=== PATIENT | male | born 1975 | race Two or more races ===

== ENCOUNTER 2020-03-31 12:52 | Outpatient (REF) | payer MEDICAID, SELFPAY | END 2020-03-31 12:53 | disposition home or self-care (01) | LOC: HO.LAB 12:52 | PROVIDERS: Visit Provider Internal Medicine | DX: Z20.828 Contact with and (suspected) exposure to other viral communicable diseases (principal) | CPT/HCPCS: 87635 ==

== ENCOUNTER 2021-01-09 13:22 | Emergency (ER) | payer MEDICAID, SELFPAY ==
--- NOTE | ~2021-01-09 | XR_ITS ---
EXAMINATION: XR FINGER, RIGHT CLINICAL INFORMATION: Pain and swelling right third finger. COMPARISON: None TECHNIQUE: AP view right hand is performed along with oblique and lateral views of the right third finger. FINDINGS: There is focal soft tissue swelling distal dorsal and lateral aspect distal right third finger near nail bed. There is no visible soft tissue radiopaque foreign body or gas tracking in the soft tissues. The underlying bone appears intact. There is no periostitis or destructive process. No fracture or dislocation. No joint narrowing or erosive changes. The remainder of the bony structures are unremarkable. XR/XR finger RT min 2V IMPRESSION: Soft tissue swelling distal right third finger. No gas tracking in soft tissues. No bony destructive process.
[2021-01-09 13:51] VITALS: BP 187/91; PULSE 56; RESP 20; TEMP 35.4; O2SAT 98; BMI 27.3
[2021-01-09] MEDS: Ibuprofen 600 MG TABLET PO (13:57)
[2021-01-09 15:32] VITALS: RESP 16
[2021-01-09] MEDS: Lidocaine HCl 1 % MPF 5 ML VIAL SUBCUT ×2 (15:57)
--- NOTE | 2021-01-09 16:28 | ED.EXTPRO ---
HPI - Extremity Problem General Chief complaint: Extremity Problem Stated complaint: rt hand finger pain Time Seen by Provider: 01/09/21 15:46 History of Present Illness HPI Narrative: Patient complains of right middle finger pain with redness and swelling around the nail bed, no other pain or swelling no fever no numbness weakness or tingling Related Data Previous Rx's Medication Instructions Recorded ibuprofen 600 mg tablet 600 mg PO Q6H PRN #20 tab 01/09/21 oxycodone-acetaminophen 5 mg-325 1 tab PO Q4-6H PRN #10 tab 01/09/21 mg tablet (Percocet) sulfamethoxazole 800 1 tab PO Q12H #14 tab 01/09/21 mg-trimethoprim 160 mg tablet (Bactrim DS) Allergies Allergy/AdvReac Type Severity Reaction Status Date / Time No Known Allergies Allergy Unknown NONE Unverified 02/28/20 18:37 Review of Systems Review of Systems: Positive for right middle finger redness and pain around the nail bed Negatives are no fever no chills no numbness weakness or tingling no joint pains no other skin rashes Yes all other systems are reviewed and are negative PMFSH Past Medical History Source: nursing notes reviewed Social History Social History Alcohol intake: never Patient Tobacco Use Status: Never used Tobacco Use of substances other than those prescribed or required for medical reasons: No Advance Directives: No Advance Directives Information Provided: No Physical Exam Vital Signs: Vital Signs: Last Vital Signs Temp 95.7 F L 01/09/21 13:51 Pulse 53 01/09/21 16:50 Resp 16 01/09/21 15:32 BP 166/100 H 01/09/21 16:50 Pulse Ox 99 01/09/21 16:50 Body Mass Index 27.3 General appearance is no acute distress Head is normocephalic atraumatic Neck is supple Respiratory no distress Extremities full range of motion x4 Right middle finger add paronychia on the lateral side of the nail bed, there is no other redness or swelling, there is full range of motion in the joints there is no tenderness over the tendons, there is no felon, there is no lymphangitis, neurovascular intact distal Course Course Course Narrative: Right middle ferritin her paronychia is cleansed with Betadine Digital block with 6 cc of 1% lidocaine is performed The nailbed is lifted with a scalpel and probed with forceps with discharge of pus and a small bit of packing is placed in the paronychia and a dressing was placed Patient was informed of his elevated blood pressure and informed of risks of failure to treat or control his blood pressure and is vice to follow with the primary doctor At this time there is no chest pain no stroke symptoms no evidence of any emergency related to this hypertension Discharge Plan Discharge Clinical Impression: Paronychia, Elevated blood pressure reading Patient Disposition: Home, Self-Care Additional Instructions: Return to ER in 2 days for packing removal wound check If the infection is improving it is okay to pull out the packing herself and then do warm soaks in Epsom salts to dried all the pus If it turns worse in any way, spreading redness, worse pain and swelling, fever, red stripe up your arm any worse condition or concerns return immediately to the ER Your blood pressure was high in the emergency room so you may have high blood pressure The best plan is to get a home blood pressure cuff and keep a journal of the readings every day to see if it is really high Follow with a primary care doctor to be evaluated for high blood pressure Prescriptions: New sulfamethoxazole-trimethoprim [Bactrim DS] 800-160 mg tablet 1 tab PO Q12H Qty: 14 RF: 0 ibuprofen 600 mg tablet 600 mg PO Q6H PRN (Reason: pain) Qty: 20 RF: 0 oxycodone-acetaminophen [Percocet] 5-325 mg tablet 1 tab PO Q4-6H PRN (Reason: pain) Qty: 10 RF: 0 Stand Alone Forms: Work/School Release Interventions: ED Discharge Assessment Last Done: 01/09/21 17:14 Discharge Date/Time: 01/09/21 17:16
[2021-01-09 16:50] VITALS: BP 166/100; PULSE 53; O2SAT 99
== END 2021-01-09 17:16 | disposition home or self-care (01) ==
PROVIDERS: Emergency Provider Emergency Medicine
DX: L03.011 Cellulitis of right finger (principal); M79.644 Pain in right finger(s)
CPT/HCPCS: 10060; 73140; 99284

== ENCOUNTER 2021-06-29 08:21 | Outpatient (REF) | payer MEDICAID, SELFPAY ==
[2021-06-29 09:30] LABS: COVID-19 Test Positive (Negative)
== END 2021-06-29 08:22 | disposition home or self-care (01) ==
LOC: HO.LAB 08:21
PROVIDERS: Visit Provider Internal Medicine
DX: Z20.822 Contact with and (suspected) exposure to COVID-19 (principal)
CPT/HCPCS: 87635; C9803

== ENCOUNTER 2023-10-25 12:50 | Outpatient (AMB) | payer MEDICAID, SELFPAY ==
--- NOTE | 2023-10-25 12:57 | MHC.OFFVIS ---
Vital Signs 10/25/23 13:00 Height 5 ft 8 in Weight 188 lb BMI 28.6 BP 133/78 Blood Pressure Location Rt brachial Position Sitting Pulse 72 Intake Visit Reasons: rt side inguinal hernia Intake Note: Patient referred for Rt inguinal hernia. Present for 1yr. Patient c/o: recently started to become painful. Denies nausea, diarrhea, constipation. Heel Sander Rubber Required: Yes Heel Sander Rubber Name: Marii JOHNSTON Accompanied by: Self / Same As Patient Allergies No Known Allergies Allergy (Unknown, Unverified 10/25/23 12:58) NONE HPI Comments Details: Patient presents with a proximally 1 year history of symptomatic right inguinal hernia. It is increasing in size, become more symptomatic. He would like to have repaired. Patient does significant weightlifting in exercising and thinks that this may have had something to do with the development of the hernia. Otherwise he tolerates a regular diet, and has regular bowel habits. No other GI issues or complaints. Chart was reviewed and patient evaluated FORMERLY [facility], [facility]–1983 Medical History (Updated 10/25/23 @ 12:59 by PRESTON Haley) Anxiety Social History Alcohol intake: never Patient Tobacco Use Status: Never used Tobacco Physical Exam Vital Signs: Last Vital Signs Pulse 72 10/25/23 13:00 BP 133/78 10/25/23 13:00 BMI result Body Mass Index 28.6 Chest Other: Chest breath sounds bilaterally, HS 1 in 2 GI Other: Patient was examined both supine and standing with Valsalva. Abdomen is soft, mildly corpulent, benign. Left groin negative. Genitalia within normal limits. Very large reducible right inguinal hernia. Assessment & Plan Assessment & Plan (1) Right inguinal hernia: Code(s): K40.90 - Unilateral inguinal hernia, without obstruction or gangrene, not specified as recurrent Category: Surgical Plan Risks, benefits, alternatives of open repair of right inguinal hernia with mesh were reviewed with the patient and included but not limited to bleeding, infection, recurrence, numbness, pain, scarring the patient wishes to proceed. All questions answered. Arrangements were made for this. Medications: Discontinued sulfamethoxazole-trimethoprim 800-160 mg (Bactrim DS) Discontinued Reason: Patient Completed Course 1 tab PO Q12H 14 tabs 0RF oxycodone-acetaminophen 5-325 mg (Percocet) Narcotic, no driving for 6 hours after taking this medication Discontinued Reason: Patient no longer taking 1 tab PO Q4-6H PRN 10 tabs 0RF pain Coding Level of Care Code New Pt Level 5 (13233) Diagnoses Right inguinal hernia K40.90
[2023-10-25 13:00] VITALS: BP 133/78; PULSE 72; BMI 28.6
== END 2023-10-25 13:09 | disposition home or self-care (01) ==
PROVIDERS: PCP Internal Medicine; Referring Provider Internal Medicine; Visit Provider Surgery
DX: K40.90 Unilateral inguinal hernia, without obstruction or gangrene, not specified as recurrent (principal)
CPT/HCPCS: 99204

== ENCOUNTER → 2023-10-25 12:50 | Outpatient (BNVA) | payer MEDICAID, SELFPAY | PROVIDERS: PCP Internal Medicine; Visit Provider Surgery | DX: K40.90 Unilateral inguinal hernia, without obstruction or gangrene, not specified as recurrent (principal) | CPT/HCPCS: 99202 ==

== ENCOUNTER 2023-11-24 07:50 | Day surgery (SDC) | payer MEDICAID, SELFPAY ==
[2023-11-22 07:06] VITALS: BMI 28.6
--- NOTE | 2023-11-22 15:20 | HO.ANESPROP2 ---
Documented by User: Shaunna Still NP 11/22/23 15:20 HPI - Anesthesia Eval Consult details Narrative: 48yo M for Right OPEN Hernia Inguinal Reducible with mesh PMFSH Active Problems Active Problems: All Active Problems Right inguinal hernia (Acute) Past Medical History Medical History Anxiety Surgical History Surgical History (Updated 11/24/23 @ 08:17 by Kelin Soto RN) History of esophagogastroduodenoscopy (EGD) Social History Social History Alcohol intake: never Patient Tobacco Use Status: Current someday Tobacco user Tobacco use type: Cigarette Smoked in Last 30 Days: Yes Patient Interested in Nicotine Replacement: No Substance Use Frequency: Daily Are you DNR?: No Advance Directives: No Advance Directives Information Provided: Yes Nutrition Risks: No Nutritional Risk Meds Allergies Allergy/AdvReac Type Severity Reaction Status Date / Time No Known Allergies Allergy Unknown NONE Verified 11/24/23 08:17 Exam Height,Weight and Vital Signs: Height 5 ft 8 in Weight 85.275 kg Assessment and Plan Assessment Anesthesia Assessment: Chart Reviewed Documented by User: Raj Chandler MD 11/24/23 09:50 PMF Past Medical History Medical History Anxiety Surgical History Surgical History (Updated 11/24/23 @ 08:17 by Kelin Soto RN) History of esophagogastroduodenoscopy (EGD) History of Problems with Anesthesia: No Social History Social History Alcohol intake: never Patient Tobacco Use Status: Current someday Tobacco user Tobacco use type: Cigarette Smoked in Last 30 Days: Yes Patient Interested in Nicotine Replacement: No Substance Use Frequency: Daily Are you DNR?: No Advance Directives: No Advance Directives Information Provided: Yes Nutrition Risks: No Nutritional Risk Meds Allergies Allergy/AdvReac Type Severity Reaction Status Date / Time No Known Allergies Allergy Unknown NONE Verified 11/24/23 08:17 Exam Airway Mallampati Class: II TM Dist: >3cm Neck ROM: Full Loose/Missing/Broken Teeth: No Heart: rrr Lungs: cta Assessment and Plan Assessment Anesthesia Assessment: Anesthesia Plan Discussed and Smoking Cess. Discussed Final Anesthetic Review History of Problems with Anesthesia: No NPO: Yes ASA Class: II Final Preanesthetic Review: No Changes in Pt Med Stat, Meds/Allgs Chart Reviewed, Consent Obtained/Reviewed and Anes Risks/Benef Reviewed Patient Risk: Intermediate Procedure Risk: Low Anesthetic Plan Anesthetic Plan: GA Disposition: Standard PACU
--- NOTE | 2023-11-23 08:07 | MHC.SHP ---
Pre-Procedural Eval Section A - 24 Hr Update-Section A only Date of Service: 11/24/23 The patient is an INPATIENT: No Changes since office visit: No Cold of Flu in the past 2 weeks, No New Medical Problems, No Changes in Medication and No Patient answered all questions Section B - Complete if H&P > 30 days Chief Complaint: Unilateral inguinal hernia, without obstruction Allergies: Allergies Allergy/AdvReac Type Severity Reaction Status Date / Time No Known Allergies Allergy Unknown NONE Unverified 10/25/23 12:58 Plan I have reviewed the history and physical and performed a pertinent physical examination on my patient. No changes have occurred unless specified. Time Spent With Patient Time: Total time managing care of this patient today ____ minutes.
[2023-11-24] VITALS (7 sets, daily range): BP systolic 113–158; BP diastolic 56–90; PULSE 49–68; RESP 16–18; TEMP 36.1–36.6; O2SAT 98–100
[2023-11-24] MEDS: Lactated Ringers 1,000 ML 100 ML IVCONT (08:10)
--- NOTE | 2023-11-24 08:33 | PC.NURSE ---
dr. bauman aware that patient had tooth pulled on Tuesday and only took one dose of the antibiotic due to surgery did not know that he could keep taking it. per dr. bauman okay to proceed. educated patient.
--- NOTE | 2023-11-24 10:52 | W.PM.OPN ---
Operative Note Operative Note Date of Service: 11/24/23 Narrative: Preoperative diagnosis: [] Symptomatic right inguinal hernia Postop diagnosis: [] The same Procedure [] right open inguinal herniorrhaphy with Bard mesh Surgeon: [] Miles Property Assessment Monitor: [] Eri Type of Anesthesia: [] General Indication for surgery: [] Very large indirect right inguinal hernia. No direct hernia demonstrated. Findings: [] Patient brought to the operating room, placed on operative table supine position, after adequate level of general anesthesia was induced, the patient's right groin groin was prepped and draped in usual sterile fashion. Using a small right para inguinal incision, this carried down through skin, subcutaneous tissue, Raffaele's fascia. External oblique fibers were opened their direction with care to isolate and preserve the ilioinguinal nerve throughout the procedure. Exploration of the cord demonstrated no indirect hernia. A very large indirect hernia was identified and reduced. A Bard plug was placed in this direct defect, and sutured inferiorly to the inguinal ligament, and superiorly to the transversalis fascia using interrupted 0 Ethibond suture. At completion of the procedure, mesh was in good position, covered the entire inguinal floor with no gaps or tension. Wound was irrigated, secured hemostasis, and closed in the following manner; external oblique fascia was closed using running 2-0 Vicryl suture. Raffaele's fascia was reapproximated using interrupted 3-0 Vicryl suture. Interrupted inverted deep dermal 3-0 Vicryl sutures followed by running subcuticular 4-0 Vicryl sutures were placed. Steri-Strips sterile dressings were applied. Wound was infiltrated at the beginning at the end with 0.5% Marcaine. Ipsilateral testicle was intrascrotal at completion. Sponge, needle, and instrument counts were reported correct. Patient tolerated the procedure well and emerged from anesthesia stable condition. EBL minimal
== END 2023-11-24 11:49 | disposition home or self-care (01) ==
PROVIDERS: Visit Provider Surgery
PROC: (CPT 49505; principal; 2023-11-24 10:10)
DX: K40.90 Unilateral inguinal hernia, without obstruction or gangrene, not specified as recurrent (principal)
CPT/HCPCS: 49505; C1781; J0131; J0690; J2250; J2704; J2795; J3010

== ENCOUNTER → 2023-11-24 07:50 | Outpatient (BNV) | payer MEDICAID, SELFPAY | PROVIDERS: Visit Provider Surgery | DX: K40.90 Unilateral inguinal hernia, without obstruction or gangrene, not specified as recurrent (principal) | CPT/HCPCS: 49505 ==

== ENCOUNTER 2023-12-05 10:42 | Outpatient (AMB) | payer MEDICAID, SELFPAY ==
--- NOTE | 2023-12-05 10:50 | MHC.OFFVIS ---
Intake Visit Reasons: S/P RIH w/mesh Intake Note: Patient here s/p RIH w/mesh. Reports incisions healing well. Patient c/o: denies pain, oozing. No longer taking rx pain meds. SX: 11-24-2023. Can Filling Room Sweeper Required: No Accompanied by: Self / Same As Patient Allergies No Known Allergies Allergy (Unknown, Verified 12/05/23 10:50) NONE HPI Comments Details: Patient presents for follow-up. He has minimal incisional discomfort. He has tolerating a diet. Having regular bowel habits. He has no wound issues or complaints. He is increasing his activity level. [facility] Medical History Anxiety Surgical History (Updated 12/05/23 @ 11:05 by Kristopher Aquino MD) Right inguinal hernia (11/24/23) History of esophagogastroduodenoscopy (EGD) Social History Alcohol intake: never Patient Tobacco Use Status: Current someday Tobacco user Tobacco use type: Cigarette Physical Exam GI Other: Abdomen is soft incision clean dry intact healing very well Assessment & Plan Assessment & Plan (1) Postop check: Code(s): Z09 - Encounter for follow-up examination after completed treatment for conditions other than malignant neoplasm Category: Surgical Plan Patient has been given local instructions, and will otherwise follow-up p.r.n.. All questions answered. He will start work which is not very strenuous but should it be come difficult, he has been instructed to call the office for unknown for time off/light duty note Coding Level of Care Code Global (95164) Diagnoses Postop check Z09
== END 2023-12-05 11:15 | disposition home or self-care (01) ==
PROVIDERS: PCP Internal Medicine; Visit Provider Surgery
DX: Z09 Encounter for follow-up examination after completed treatment for conditions other than malignant neoplasm (principal)
CPT/HCPCS: 99024

== ENCOUNTER → 2023-12-05 10:42 | Outpatient (BNVA) | payer MEDICAID, SELFPAY | PROVIDERS: PCP Internal Medicine; Visit Provider Surgery | DX: Z09 Encounter for follow-up examination after completed treatment for conditions other than malignant neoplasm (principal); Z87.19 Personal history of other diseases of the digestive system | CPT/HCPCS: 99212 ==

== ENCOUNTER 2024-01-19 15:57 | Emergency (ER) | payer MEDICAID, SELFPAY ==
--- NOTE | ~2024-01-19 | XR_ITS ---
EXAMINATION: XR CHEST CLINICAL INFORMATION: Chest pain COMPARISON: Chest radiograph 12/29/2019 TECHNIQUE: 2 views of the chest were obtained. FINDINGS: The lungs are adequately expanded. No focal consolidation. No pleural effusions or pneumothorax. The cardiomediastinal silhouette is within normal limits. No acute osseous abnormality. Mild degenerative changes of the thoracic spine. XR/XR chest 2V IMPRESSION: No acute pulmonary disease.
--- NOTE | 2024-01-19 16:05 | ECG_ITS ---
Test Reason : chest pain Blood Pressure : / mmHG Vent. Rate : 056 BPM Atrial Rate : 056 BPM P-R Int : 130 ms QRS Dur : 078 ms QT Int : 412 ms P-R-T Axes : 067 039 046 degrees QTc Int : 397 ms Sinus bradycardia Otherwise normal ECG When compared with ECG of 30-DEC-2019 02:56, Vent. rate has decreased BY 89 BPM Nonspecific T wave abnormality no longer evident in Inferior leads Nonspecific T wave abnormality no longer evident in Anterolateral leads Referred By: Generic ED Physician Electronically Signed By:NICOLLE REAVES MD
--- NOTE | 2024-01-19 16:06 | ED_ITS ---
HPI - General Adult General Chief complaint: Chest Pain Stated complaint: l side chest pain x3 days,rectal bleeding x5days Time Seen by Provider: 01/19/24 16:06 Source: patient Mode of arrival: ambulatory Limitations: no limitations History of Present Illness ED Provider: suhail [facility] narrative: Patient is a 48-year-old male with no reported past medical history presenting to the emergency department with complaint of bright red rectal bleeding for the past 5 days as well as intermittent epigastric pain, but states today he developed left sided chest pain which brought him in. States chest pain has been intermittent, some associated shortness of breath. Denies palpitations. Denies current abdominal pain. Denies nausea, vomiting, diarrhea, constipation. States he has noted blood in the toilet and on the toilet paper when he wipes with all BMs for the past 4-5 days. Mild lightheadedness, denies syncope. MD complaint: chest pain, rectal bleeding Treatments prior to arrival: none Related Data Previous Rx's ?Medication ?Instructions ?Recorded ibuprofen 600 mg tablet 600 mg PO Q6H PRN pain #20 tabs 01/09/21 Allergies Allergy/AdvReac Type Severity Reaction Status Date / Time No Known Allergies Allergy Unknown NONE Verified 01/19/24 16:11 Review of Systems 2 Review of Systems: As per HPI Yes all other systems are reviewed and are negative Constitutional: Constitutional: Reports as per HPI [facility] Past Medical History Medical History (Updated 01/19/24 @ 20:37 by Chika Herzog NP) Anxiety Surgical History (Updated 12/05/23 @ 11:05 by Kristopher Aquino MD) Right inguinal hernia (11/24/23) History of esophagogastroduodenoscopy (EGD) Social History Social History Alcohol intake: never Patient Tobacco Use Status: Current someday Tobacco user Tobacco use type: Cigarette Advance Directives: No Advance Directives Information Provided: No Do you have a plan to hurt others: No Plan Physical Exam ED Vital Signs: Vital Signs - 24 hr 01/19/24 16:07 01/19/24 19:13 Temperature 98.5 F 98.1 F Pulse Rate 60 55 Respiratory Rate 20 14 Blood Pressure 129/69 114/74 Pulse Oximetry 98 97 Oxygen Delivery Method Room Air Room Air BMI result Body Mass Index 30.3 Vital signs have been reviewed and appear to be correct. Blood pressure normal. Heart rate normal. Respiratory rate normal. Temperature normal. Oxygen saturation normal. Const General: cooperative, healthy appearing and no acute distress Orientation/consciousness: oriented to person, oriented to place, oriented to time and patient oriented x3 Limitations: no limitations HENMT Head: Yes normocephalic and Yes atraumatic Ears: external ears normal General nose exam: Normal external nose present Face and sinus: Yes face symmetric Mouth: oropharynx normal and moist mucous membranes Throat: Yes uvula midline Eyes Pupils: Equal, round and reactive pupils present Neck Neck: Yes normal visual inspection and Yes supple Resp Effort & Inspection: normal respiratory effort and able to speak in complete sentences Auscultation: clear to auscultation bilaterally Cardio Rate: regular rate Rhythm: regular rhythm Heart sounds: S1 normal heart sound present and S2 normal heart sound present GI Palpation (GI): Soft to palpation and nontender Auscultation: normoactive bowel sounds General: Yes no CVA tenderness Back/Spine/Pelvis Back: no CVA tenderness Skin General skin exam: elasticity normal and turgor normal Neuro General: oriented to person, oriented to place, oriented to time, patient oriented x3, moves all extremities, no focal motor deficits and CN's II-XI intact bilaterally Cranial nerves: Yes Equal, round and reactive pupils present Cognition (Neuro): normal cognition Extrem General: Yes full ROM, Yes no pedal edema and Yes no calf tenderness Psych Mental Status: mental status grossly normal Affect: normal affect Thought process: Normal thought process present Medications Administered Discontinued Medications Generic Name Dose Route Start Last Admin Trade Name Real PRN Reason Stop Dose Admin Aspirin 324 mg 01/19/24 16:19 01/19/24 16:50 Aspirin 81 Mg Tab.Chew PO 01/19/24 16:20 324 mg ONCE ONE Administration Medical Decision Making Medical Decision Making [facility] Narrative: Patient is a 48-year-old male with no reported past medical history presenting to the emergency department with complaint of bright red rectal bleeding for the past 5 days as well as intermittent epigastric pain, but states today he developed left sided chest pain which brought him in. On exam patient is awake, A+Ox3, VS WNL, afebrile, normal neurological exam without focal deficits, physical exam findings as above. Given reported symptoms and physical exam findings, initial differential includes GERD, PUD, musculoskeletal pain, hemorrhoids, GI bleed. Less likely ACS, will obtain EKG and troponin. Labs notable for slight anemia not at transfusion level consistent with prior, no significant electrolyte abnormalities, negative troponin x2. EKG shows sinus bradycardia. X-ray chest notable for no evidence pneumonia, pneumothorax, cardiomegaly. My interpretation is in agreement with the radiologist's interpretation. Patient initially stating he has not previously been diagnosed with hemorrhoids. Patient then stated that he was seen at [facility] today and had rectal exam and was prescribed medication for hemorrhoids. He is declining additional rectal exam at this time. Feel patient is stable for discharge home. Return precautions discussed at bedside. Instructed patient to follow-up with PCP. Patient verbalized understanding of and agreement with plan. Differential Diagnosis Differential Diagnoses: The differential diagnosis associated with the presentation includes As per [facility]. Admission/Observation Consideration of admission/observation: Escalation of care including admission/observation considered Patient would have been admitted to the hospital had their work up had any findings where hospital admission was appropriate and their clinical presentation warranted hospital admission. Lab Data [facility] Lab Attestation statement: I reviewed the patient's lab results. As per [facility] 01/19/24 16:22 01/19/24 16:22 Labs: Lab Results 01/19/24 01/19/24 Range/Units 16:22 19:17 WBC 9.1 (4.8-10.8) X10*3/uL RBC 4.31 L (4.60-5.80) X10*6/uL Hgb 13.2 L (14.0-18.0) g/dl Hct 38.6 L (42.0-52.0) % MCV 89.6 (80.0-98.0) fL MCH 30.6 (27.0-33.0) pg MCHC 34.2 (31.0-36.0) g/dl RDW 13.2 (11.0-16.0) % Plt Count 248 (160-400) X10*3/uL MPV 9.7 (9.4-12.4) fL Immature Gran % (Auto) 0.4 (0.0-0.4) % Neut % (Auto) 57.4 (45-73) % Lymph % (Auto) 30.9 (20-40) % [place] % (Auto) 7.1 (2-11) % Eos % (Auto) 3.5 (0-4) % Baso % (Auto) 0.7 (0-2) % Lymph # (Auto) 2.8 (1.2-4.9) X10*3/uL [place] # (Auto) 0.7 (0.1-1.2) X10*3/uL Eos # (Auto) 0.3 (0.0-0.4) X10*3/uL Baso # (Auto) 0.1 (0.0-0.2) X10*3/uL Abs Immat Gran (auto) 0.04 H (0.00-0.03) X10*3/uL Absolute Neuts (auto) 5.2 (2.0-8.3) x10*3/uL Absolute Nucleated RBC 0.000 (0.0-0.012) X10*3/uL Nucleated RBC % (auto) 0.0 (0.0-0.2) /100WBC PT 11.6 (11.1-13.3) SEC INR 1.0 (0.9-1.1) Sodium 139 (135-145) mmol/L Potassium 3.9 (3.3-5.1) mmol/L Chloride 110 H (96-108) mmol/L Carbon Dioxide 22 (22-29) mmol/L Anion Gap 11 L (12-20) BUN 18 H (9-16) mg/dL Creatinine 0.85 (0.5-1.4) mg/dL Estim Creat Clear Calc 118.5 Estimated GFR > 60 Random Glucose 98 (60-115) mg/dL Calcium 8.9 (8.4-10.2) mg/dL Magnesium 2.2 (1.6-2.6) mg/dL Total Bilirubin 0.2 (0.0-1.0) mg/dL AST 21 (5-37) U/L ALT 23 (0-40) U/L Alkaline Phosphatase 61 (39-117) U/L Troponin I High Sens < 2.7 < 2.7 (<3.5-35.0) ng/L Total Protein 7.1 (6.5-8.0) g/dL Albumin 4.2 (3.5-5.0) g/dL Influenza Type A (PCR) NEGATIVE (Negative) Influenza Type B (PCR) NEGATIVE (Negative) RSV RNA Qual (PCR) NEGATIVE (Negative) SARS-CoV-2 RNA (RT-PCR) NEGATIVE (Negative) Independent Interpretation I performed an independent interpretation of an: Plain X-Ray Interpretation: Chest x-ray is without evidence of pneumonia, pneumothorax, cardiomegaly Radiology Impression Discussion of test interpretation with radiology: I have reviewed the radiologist's reading. Radiologist Impression: XR/XR chest 2V IMPRESSION: No acute pulmonary disease. External Record Review External record reviewed: Inpatient record, Office record and Outpatient record Discharge Plan Discharge Clinical Impression: Atypical chest pain Patient Disposition: Home, Self-Care Instructions: Chest Pain (DC), Hemorrhoids (DC), Rectal Bleeding (ED) Additional Instructions: You were evaluated in the emergency department today for chest pain. 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 Please schedule an appointment for follow-up with your primary care physician as soon as possible. Return to the emergency department if you experience worsening or uncontrolled chest pain, shortness of breath, lightheadedness, feeling faint, loss of consciousness, nausea, vomiting, or any other concerning symptoms. Prescriptions: No Action ibuprofen 600 mg tablet 600 mg PO Q6H PRN (Reason: pain) Qty: 20 0RF Print Language: Sinhala
[2024-01-19 16:07] VITALS: BP 129/69; BP 150/90; PULSE 60; PULSE 62; RESP 20; TEMP 36.9; O2SAT 98; O2SAT 99; BMI 30.3
[2024-01-19 16:26] LABS: MANUAL DIFF FLAG NO
[2024-01-19 16:28] LABS: Basophils Absolute Auto 0.1 X10*3/uL (0.0-0.2); Basophils Percent Auto 0.7 % (0-2); Eosinophils Absolute Auto 0.3 X10*3/uL (0.0-0.4); Eosinophils Percent Auto 3.5 % (0-4); Hematocrit 38.6 % (42.0-52.0); Hemoglobin 13.2 g/dl (14.0-18.0); Imm Gran Abs Auto 0.04 X10*3/uL (0.00-0.03); Imm Gran Pct Auto 0.4 % (0.0-0.4); Lymphocytes Absolute Auto 2.8 X10*3/uL (1.2-4.9); Lymphocytes Percent Auto 30.9 % (20-40); Mean Corpuscular HGB Conc 34.2 g/dl (31.0-36.0); Mean Corpuscular Hemoglobin 30.6 pg (27.0-33.0); Mean Corpuscular Volume 89.6 fL (80.0-98.0); Mean Platelet Volume 9.7 fL (9.4-12.4); Monocytes Absolute Auto 0.7 X10*3/uL (0.1-1.2); Monocytes Percent Auto 7.1 % (2-11); Neutrophils Absolute Auto 5.2 x10*3/uL (2.0-8.3); Neutrophils Percent Auto 57.4 % (45-73); Platelet Count 248 X10*3/uL (160-400); Red Blood Count 4.31 X10*6/uL (4.60-5.80); Red Cell Distribution Width 13.2 % (11.0-16.0); White Blood Count 9.1 X10*3/uL (4.8-10.8)
[2024-01-19 16:40] LABS: Prothrombin Time 11.6 SEC (11.1-13.3)
[2024-01-19 16:41] LABS: Alanine Aminotransferase 23 U/L (0-40); Albumin Level 4.2 g/dL (3.5-5.0); Alkaline Phosphatase 61 U/L (39-117); Anion Gap 11 (12-20); Aspartate Amino Transferase 21 U/L (5-37); Bilirubin Total 0.2 mg/dL (0.0-1.0); Blood Urea Nitrogen 18 mg/dL (9-16); Calcium 8.9 mg/dL (8.4-10.2); Carbon Dioxide 22 mmol/L (22-29); Chloride 110 mmol/L (96-108); Creatinine Clr Calc Pharmacy 118.5; Estimated Glomerular Filt Rate > 60; Glucose Random 98 mg/dL (60-115); Magnesium 2.2 mg/dL (1.6-2.6); Potassium 3.9 mmol/L (3.3-5.1); Sodium 139 mmol/L (135-145); Total Protein 7.1 g/dL (6.5-8.0)
[2024-01-19 16:49] LABS: Troponin-I High Sensitivity < 2.7 ng/L (<3.5-35.0)
[2024-01-19] MEDS: Aspirin 81 MG TAB.CHEW 324 MG PO (16:50)
[2024-01-19 17:04] LABS: Influenza A PCR NEGATIVE (Negative); Influenza B PCR NEGATIVE (Negative); Resp Syncy Virus RNA Qual PCR NEGATIVE (Negative); SARS COV2 PCR INHOUSE NEGATIVE (Negative)
[2024-01-19 19:13] VITALS: BP 114/74; PULSE 55; RESP 14; TEMP 36.7; O2SAT 97
[2024-01-19 19:44] LABS: Troponin-I High Sensitivity < 2.7 ng/L (<3.5-35.0)
[2024-01-19 20:43] VITALS: BP 148/81; PULSE 60; RESP 18; TEMP 36.7; O2SAT 100
== END 2024-01-19 20:45 | disposition home or self-care (01) ==
PROVIDERS: Registered Nurse Emergency; Emergency Provider Emergency Medicine
DX: R07.89 Other chest pain (principal); R00.1 Bradycardia, unspecified; K62.5 Hemorrhage of anus and rectum; F17.210 Nicotine dependence, cigarettes, uncomplicated; Z03.818 Encounter for observation for suspected exposure to other biological agents ruled out
CPT/HCPCS: 0241U; 36415; 71046; 80053; 83735; 84484; 85025; 85610; 93005; 99283; 99284

== ENCOUNTER → 2024-01-19 16:05 | Outpatient (BNV) | payer MEDICAID, SELFPAY | PROVIDERS: Emergency Provider Emergency Medicine; Visit Provider Internal Medicine Cardiovascular Disease | DX: R07.9 Chest pain, unspecified (principal); R00.1 Bradycardia, unspecified | CPT/HCPCS: 93010 ==

== ENCOUNTER 2024-04-16 14:03 | Outpatient (AMB) | payer MEDICAID, SELFPAY ==
[2024-04-16 14:07] VITALS: BP 116/44; PULSE 56; O2SAT 97; BMI 26.7
--- NOTE | 2024-04-16 14:07 | A.OFFVIS_ITS ---
Vital Signs 04/16/24 14:07 Height 5 ft 8 in Weight 175 lb 14.862 oz BMI 26.7 BP 116/44 L Blood Pressure Location Rt brachial Position Sitting Pulse 56 Pulse Source Pulse Oximeter Pulse Oximetry (%) 97 Oxygen Delivery Method Room Air Intake Visit Reasons: Rectal bleeding Intake Note: Relevant Flags or Indicators ? 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 Francisco Parham presents in office today for a scheduled initial assessment post ED admit CC; Recently seen in ED x3 mos ago for rectal bleeding. Relevant GI Sx as reported per pt? Reflux ? Fecal abnormalities o?? Discolored? Pt does report having some melena / hematochezia. BM otherwise normal. ? Abdominal Pain o?? RLQ pain. Pt reports that sometimes it is very sharp upon intake of food or drink. Pt is actively trying to lose weight and gain muscle. ? Hx of any recent surgeries? Pt reports surgery via Dr. Aquino within the last 6 mos. 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 male with no significant past medical history except for anxiety and right inguinal hernia repair in November of 2023 is here today for evaluation of rectal bleed. Patient admits to having rectal bleeding on and off for the past few months.? No history of colonoscopy in the past. Patient denies any other gastrointestinal symptoms at present.? Denies any personal or family history of gastrointestinal disease, colon polyps, or CRC.? Denies history of difficulty with sedation or anesthesia in the past.? Negative for history of sleep apnea.? Denies any history of cardiac, renal, pulmonary, or hepatic disease.?? No history of infectious? diseases like hepatitis A, B, C, HIV or tuberculosis.? Patient is not on any anticoagulation [facility] Medical History Anxiety Surgical History Right inguinal hernia (11/24/23) History of esophagogastroduodenoscopy (EGD) Social History Alcohol intake: never Patient Tobacco Use Status: Current someday Tobacco user Tobacco use type: Cigarette Review of Systems Const Denies weight gain and Denies weight loss ENT Reports no additional complaints, Denies dysphagia and Denies odynophagia Card Reports no additional complaints Resp Reports no additional complaints GI Denies abdominal pain, Denies belching, Denies melena, Denies bloating, Reports hematochezia (Occasional), Denies change in bowel habits, Reports constipation, Denies dysphagia, Denies excessive flatus, Denies dyspepsia, Denies heartburn, Denies diarrhea, Denies loose stools, Denies nausea, Denies odynophagia and Denies vomiting Reports no additional complaints Musc Reports no additional complaints Neuro Reports no additional complaints Psych Reports no additional complaints Endo Reports no additional complaints Physical Exam Vital Signs: Last Vital Signs Pulse 56 04/16/24 14:07 BP 116/44 L 04/16/24 14:07 Pulse Ox 97 04/16/24 14:07 Oxygen Delivery Method Room Air 04/16/24 14:07 BMI result Body Mass Index 26.7 Const General: healthy appearing, no acute distress and well developed Nutritional Appearance: well nourished Orientation/consciousness: patient oriented x3 Resp Effort & Inspection: normal respiratory effort, able to speak in complete sentences, no tracheal deviation and symmetric chest movement Auscultation: clear to auscultation bilaterally Cardio Rate: regular rate GI Inspection: Yes normal to inspection and No distended Palpation (GI): Soft to palpation, not firm, nontender and No hepatosplenomegaly present Auscultation: normal bowel sounds General: Yes no CVA tenderness Back/Spine/Pelvis Back: no CVA tenderness Skin General skin exam: elasticity normal, turgor normal and dry skin Neuro General: patient oriented x3 Psych Appearance: grossly normal Mental Status: mental status grossly normal Assessment & Plan Assessment & Plan (1) Rectal bleed: Code(s): K62.5 - Hemorrhage of anus and rectum (2) Screen for colon cancer: Code(s): Z12.11 - Encounter for screening for malignant neoplasm of colon (3) Abdominal pain: Code(s): R10.9 - Unspecified abdominal pain Qualifiers: Abdominal location: generalized Qualified Code(s): R10.84 - Generalized abdominal pain Plan Patient denies any cardiac or respiratory symptoms.? However patient does admit to have abdominal pain occasionally postprandially. Patient reports that the pain feels right cramps, however he states that sometimes he will have the pain even when he is not eating. Patient admits to occasional blood in his stool. Denies being constipated, however he does admit that he does not feel like he empties completely. Sometimes urge to go to the bathroom even after he has a bowel movement. Denies any issues with anesthesia in the past.? Denies any history of sleep apnea.? No history infectious diseases in the past or present.? Not on any anticoagulation therapy.? No family or personal history of colon can cer or polyps.? Patient denies melena, hematochezia, unintentional weight loss or ribbon like stools.? Discussed at length the pre-procedure,? prep, diet & medications as well as what to expect prior, during and after the procedure.?? Stressed the importance of good bowel prep.? Recommended the use of Vaseline or Calmoseptine OTC & baby wipes with bowel movements to promote comfort.? ?Patient verbalizes understanding and agrees to plan of care.? He was given the opportunity to ask questions and all questions answered.? We will see him after the procedure.? Orders: Orders Lipase 04/16/24 R10.9 - Unspecified abdominal pain US abdomen complete 04/16/24 R10.9 - Unspecified abdominal pain Medications: New bisacodyl (Dulcolax (bisacodyl)) 10 mg (2 x 5 mg) PO BEDTIME 180 tabs 4RF polyethylene glycol 3350 (Miralax) As directed by gastroenterology department at [facility] 238 grams PO ONCE 238 grams 0RF Z12.11 - Encounter for screening for malignant neoplasm of colon Coding Level of Care Code New Pt Level 3 (49050) Diagnoses Rectal bleed K62.5 Screen for colon cancer Z12.11 Generalized abdominal pain R10.84 Abdominal location: generalized Time Spent (min) 40 Comment 30 minutes spent with patient and additional 10 minutes spent reviewing his records
== END 2024-04-16 14:54 | disposition home or self-care (01) ==
LOC: HO.HGI 14:04
PROVIDERS: PCP Internal Medicine; Visit Provider Nurse Practitioner Family
DX: K62.5 Hemorrhage of anus and rectum (principal); Z12.11 Encounter for screening for malignant neoplasm of colon; R10.84 Generalized abdominal pain
CPT/HCPCS: 99203

== ENCOUNTER → 2024-04-16 14:03 | Outpatient (BNVA) | payer MEDICAID, SELFPAY | PROVIDERS: PCP Internal Medicine; Visit Provider Nurse Practitioner Family | DX: Z12.11 Encounter for screening for malignant neoplasm of colon (principal); K62.5 Hemorrhage of anus and rectum; R10.84 Generalized abdominal pain | CPT/HCPCS: 99212 ==

== ENCOUNTER 2024-04-26 09:05 | Outpatient (REF) | payer MEDICAID, SELFPAY | END 2024-04-26 09:06 | disposition home or self-care (01) | LOC: HO.US 09:05 | PROVIDERS: Visit Provider Nurse Practitioner Family | DX: R10.9 Unspecified abdominal pain (principal) | CPT/HCPCS: 76700 ==

== ENCOUNTER 2024-05-03 11:37 | Day surgery (SDC) | payer MEDICAID, SELFPAY ==
--- NOTE | 2024-05-02 11:54 | HO.ANESPROP2 ---
Documented by User: Shaunna Still NP 05/22/24 12:20 HPI - Anesthesia Eval Consult details Narrative: 48yo M for Colonoscopy [facility] Active Problems Active Problems: All Active Problems Postop check (Acute) Right inguinal hernia (Acute 11/24/23) Past Medical History Medical History Anxiety Surgical History Surgical History Right inguinal hernia (11/24/23) History of esophagogastroduodenoscopy (EGD) History of Problems with Anesthesia: No Social History Social History Are you a primary vp care management to a significant other at home: No Do you presently have visiting nurse or other home services: No Alcohol intake: never Patient Tobacco Use Status: Former Tobacco user Tobacco use type: Cigarette Meds Allergies Allergy/AdvReac Type Severity Reaction Status Date / Time No Known Allergies Allergy Unknown NONE Verified 04/16/24 14:13 Home Medications ?Medication ?Instructions ?Recorded ?Confirmed ?Last Taken ?Type Saccharomyces boulardii 250 mg 250 mg PO BID 04/16/24 05/03/24 Unknown History capsule (Daily Probiotic (S. boulardii)) cholecalciferol (vitamin D3) 50 50 mcg PO DAILY 04/16/24 05/03/24 Unknown History mcg (2,000 unit) capsule cyanocobalamin (vitamin B-12) 1,000 mcg sublingual DAILY 04/16/24 05/03/24 Unknown History 1,000 mcg sublingual tablet multivitamin 1 tab PO DAILY 04/16/24 05/03/24 Unknown History Assessment and Plan Assessment Anesthesia Assessment: Chart Reviewed Final Anesthetic Review History of Problems with Anesthesia: No Documented by User: Ivan Solorzano MD 05/24/24 14:41 [facility] Past Medical History Medical History Anxiety Family History Family history of problems with anesthesia: No Surgical History Surgical History Right inguinal hernia (11/24/23) History of esophagogastroduodenoscopy (EGD) History of Problems with Anesthesia: No Social History Social History Are you a primary vp care management to a significant other at home: No Do you presently have visiting nurse or other home services: No Alcohol intake: never Patient Tobacco Use Status: Former Tobacco user Tobacco use type: Cigarette Meds Allergies Allergy/AdvReac Type Severity Reaction Status Date / Time No Known Allergies Allergy Unknown NONE Verified 04/16/24 14:13 Home Medications ?Medication ?Instructions ?Recorded ?Confirmed ?Last Taken ?Type Saccharomyces boulardii 250 mg 250 mg PO BID 04/16/24 05/03/24 Unknown History capsule (Daily Probiotic (S. boulardii)) cholecalciferol (vitamin D3) 50 50 mcg PO DAILY 04/16/24 05/03/24 Unknown History mcg (2,000 unit) capsule cyanocobalamin (vitamin B-12) 1,000 mcg sublingual DAILY 04/16/24 05/03/24 Unknown History 1,000 mcg sublingual tablet multivitamin 1 tab PO DAILY 04/16/24 05/03/24 Unknown History Exam Airway Mallampati Class: II TM Dist: <=3cm Neck ROM: Full Heart: ok Lungs: ok Assessment and Plan Assessment Anesthesia Assessment: Anesthesia Plan Discussed Final Anesthetic Review Family History of Problems with Anesthesia: No History of Problems with Anesthesia: No NPO: Yes ASA Class: II Final Preanesthetic Review: No Changes in Pt Med Stat, Meds/Allgs Chart Reviewed, Consent Obtained/Reviewed and Anes Risks/Benef Reviewed Patient Risk: Low Procedure Risk: Low Anesthetic Plan Anesthetic Plan: MAC: and Agree w/ Assess. and Plan
[2024-05-03] MEDS: Lactated Ringers 1,000 ML 100 ML IVCONT (13:26)
--- NOTE | 2024-05-03 13:32 | MHC.SHP ---
Pre-Procedural Eval Section A - 24 Hr Update-Section A only Date of Service: 05/03/24 Section B - Complete if H&P > 30 days Chief Complaint: Hemorrhage of anus and rectum Relevant Family History (Specify if Yes): No Relevant Social History: Tobacco Use Present Medications: see Short Stay Collaborative assessment Medical History: Significant History (Anxiety) History of Previous Operations: Relevant previous surgery/procedure and date(s) (Right inguinal hernia (11/24/23) History of esophagogastroduodenoscopy (EGD)) Allergies: Allergies Allergy/AdvReac Type Severity Reaction Status Date / Time No Known Allergies Allergy Unknown NONE Verified 04/16/24 14:13 Review of Systems Sugical H&P ROS: Negative: Constitution, Cardiovascular, Respiratory, Neurological, Psychiatric, Hem-Onc, Allergic/Immunologic, Gastrointestinal, Genitourinary, Musculoskeletal, Integumentary, Endocrine and Eyes/Ears/Nose/Throat Exam Surgical H&P Exam: Normal: HEENT, Normal: Heart, Normal: Lungs, Normal: Extremities, Normal: Abdomen, Normal: Skin and Normal: Neurological Plan Diagnosis/Plan: Unchanged I have reviewed the history and physical and performed a pertinent physical examination on my patient. No changes have occurred unless specified. Time Spent With Patient Time: Total time managing care of this patient today ____ minutes.
[2024-05-03 13:35] VITALS: BMI 26.6
[2024-05-03 13:36] VITALS: BP 109/59; PULSE 59; RESP 18; TEMP 36.7; O2SAT 97
--- NOTE | 2024-05-03 15:20 | HO.OPN-COLON ---
Colonoscopy Operative Note Operative Note Date of Service: 05/03/24 Narrative: Operative Information Procedure Description: Colonoscopy Indication: rectal bleeding Anesthesia: MAC COLONOSCOPY Instrument: Olympus variable stiffness pediatric scope 190L Colonoscopy Monitoring: Vital signs and clinical assessment, continuous EKG monitoring, Pulse oximetry, Carbon Dioxide monitoring and blood pressure monitoring were done throughout the procedure. Colon withdrawal time was 24 minutes. Procedure: The patient was placed in the left lateral decubitis position and pre-procedure medications were administered. After a digital rectal examination of the ano-rectum, the video colonoscope was inserted into the rectum and advanced through the colon to the cecum/TI. The colonoscope was slowly withdrawn in a retrograde panoramic fashion and the colon mucosa was carefully examined including a retroflexed view of the rectum. Findings and interventions are described below. Procedure Difficulty: easy Findings: Terminal Ileum-normal Cecum:normal Ascending Colon: x1 sessile polyp 5-8 mm removed with cold forceps and 10-12 mm sessile polyp injected with eleview and removed with cold snare Transverse Colon - x 2 sessile polyps 6-8 mm, one removed with cold snare and the other with cold forceps Descending Colon: x 2 sessile polyps 5-8 mm removed with cold snare Sigmoid Colon: normal Rectosigmoid junction at 22 cm, pedunculated and inflammed, erythematous polyp 15-16 mm noted injected with epinephrine and removed with hot snare with x 2 clips applied. Rectum: Retroflexion with small internal hemorrhoids seen, grade I Anorectum - normal Intervention: cold snare, hot snare, cold forceps, epinephrine injection, eleview injection and lift and clips Colon preparation: Whitetail Bowel Preparation Scale Right colon; 2 Transverse colon: 2 Left colon; 2 (0 = Unprepared colon segment with mucosa not seen due to solid stool that cannot be cleared. 1 = Portion of mucosa of the colon segment seen, but other areas of the colon segment not well seen due to staining, residual stool and/or opaque liquid. 2 = Minor amount of residual staining, small fragments of stool and/or opaque liquid, but mucosa of colon segment seen well. 3 = Entire mucosa of colon segment seen well with no residual staining, small fragments of stool or opaque liquid) Impression and Post Procedure Diagnosis: colon polyps internal hemorrhoids Plan: High fiber diet leaflet Avoid straining at stool, epsom salts and sitz bath, anusol supps or cream Repeat Colonoscopy in 8- 12 months or earlier if clinically indicated Above findings were reviewed with the patient and relevant handouts were provided if indicated.
[2024-05-03 15:31] VITALS: BP 110/60; PULSE 60; RESP 18; TEMP 37.1; O2SAT 99
[2024-05-03 15:45] VITALS: BP 123/66; PULSE 48; RESP 18; TEMP 37; O2SAT 100
== END 2024-05-03 16:39 | disposition home or self-care (01) ==
PROVIDERS: Visit Provider Internal Medicine Gastroenterology
PROC: 0DJD8ZZ Inspection of Lower Intestinal Tract, Via Natural or Artificial Opening Endoscopic (ICD-10-PCS; CPT 45378; principal; 2024-05-03 14:30)
DX: K62.5 Hemorrhage of anus and rectum (principal); R19.5 Other fecal abnormalities; D12.2 Benign neoplasm of ascending colon; D12.7 Benign neoplasm of rectosigmoid junction; K63.5 Polyp of colon; R10.31 Right lower quadrant pain; K21.9 Gastro-esophageal reflux disease without esophagitis; F41.9 Anxiety disorder, unspecified; Z79.899 Other long term (current) drug therapy; Z98.890 Other specified postprocedural states; F17.210 Nicotine dependence, cigarettes, uncomplicated
CPT/HCPCS: 45385; 45380; 45381; 88305; J0171; J2003; J2704

== ENCOUNTER → 2024-05-03 11:37 | Outpatient (BNV) | payer MEDICAID, SELFPAY | PROVIDERS: Visit Provider Internal Medicine Gastroenterology | DX: K62.5 Hemorrhage of anus and rectum (principal); D12.7 Benign neoplasm of rectosigmoid junction; K63.5 Polyp of colon; K64.0 First degree hemorrhoids | CPT/HCPCS: 45380; 45381; 45385 ==

== ENCOUNTER 2024-05-29 09:54 | Emergency (ER) | payer MEDICAID, SELFPAY ==
--- NOTE | ~2024-05-29 | XR_ITS ---
EXAMINATION: XR CHEST CLINICAL INFORMATION: chest pain COMPARISON: January 19, 2024 TECHNIQUE: 2 views of the chest were obtained. FINDINGS: There is no gross pneumothorax. Lung volumes are low. Redemonstration of rounded metallic item, possibly piercing, overlying the left breast region. Heart size within normal limits. No pleural effusion. No focal consolidation. Moderate degenerative changes in the thoracic spine. Arm obscures the upper thorax on lateral view. XR/XR chest 2V IMPRESSION: No focal consolidation. This study was presented today to May 29, 2024 for interpretation. Stat results provided at this time as requested by referring provider. Electronically signed by: Daphne Redmond MD 05/29/2024 11:45 AM [facility]
--- NOTE | 2024-05-29 09:56 | ECG_ITS ---
Test Reason : CHEST PAIN Blood Pressure : / mmHG Vent. Rate : 056 BPM Atrial Rate : 056 BPM P-R Int : 120 ms QRS Dur : 088 ms QT Int : 416 ms P-R-T Axes : 041 052 045 degrees QTc Int : 401 ms Sinus bradycardia Otherwise normal ECG No significant changes when compared with the previous EKG of 19 jan 2024 Referred By: Generic ED Physician Electronically Signed By:JENNIFER SOSA
[2024-05-29 10:10] VITALS: BP 145/70; PULSE 55; RESP 16; TEMP 36.4; O2SAT 99; BMI 27.1
[2024-05-29 11:20] LABS: MANUAL DIFF FLAG NO
[2024-05-29 11:23] LABS: Basophils Absolute Auto 0.1 X10*3/uL (0.0-0.2); Basophils Percent Auto 0.5 % (0-2); Eosinophils Absolute Auto 0.2 X10*3/uL (0.0-0.4); Eosinophils Percent Auto 2.4 % (0-4); Hematocrit 38.6 % (42.0-52.0); Imm Gran Abs Auto 0.04 X10*3/uL (0.00-0.03); Imm Gran Pct Auto 0.4 % (0.0-0.4); Lymphocytes Absolute Auto 2.1 X10*3/uL (1.2-4.9); Lymphocytes Percent Auto 21.4 % (20-40); Mean Corpuscular HGB Conc 33.7 g/dl (31.0-36.0); Mean Corpuscular Volume 91.9 fL (80.0-98.0); Mean Platelet Volume 10.8 fL (9.4-12.4); Monocytes Absolute Auto 0.9 X10*3/uL (0.1-1.2); Monocytes Percent Auto 8.5 % (2-11); Neutrophils Absolute Auto 6.7 x10*3/uL (2.0-8.3); Neutrophils Percent Auto 66.8 % (45-73); Platelet Count 238 X10*3/uL (160-400); Red Cell Distribution Width 13.6 % (11.0-16.0)
[2024-05-29 11:38] LABS: Anion Gap 10 (12-20); Blood Urea Nitrogen 24 mg/dL (9-16); Calcium 8.7 mg/dL (8.4-10.2); Carbon Dioxide 25 mmol/L (22-29); Chloride 109 mmol/L (96-108); Creatinine Clr Calc Pharmacy 101.4; Estimated Glomerular Filt Rate > 60; Glucose Random 117 mg/dL (60-115); Potassium 4.1 mmol/L (3.3-5.1); Sodium 140 mmol/L (135-145)
[2024-05-29 11:54] LABS: Troponin-I High Sensitivity < 2.7 ng/L (<3.5-35.0)
--- NOTE | 2024-05-29 17:04 | ED_ITS ---
HPI - Chest Pain General Chief Complaint: Chest Pain Stated Complaint: chest pain Time Seen by Provider: 05/29/24 16:14 Source: patient Mode of arrival: ambulatory Limitations: no limitations History of Present Illness ED Provider: Dr. Emelina Griffin HPI narrative: Patient comes to the emergency room complaining of chest pain for approximately 48 hours. Patient states that boluses of his chest hurt. Patient admits that he has been lifting weights to work out his pectoralis muscles. Patient works out every day. Patient denies any shortness of breath, no pain radiation. Related Data Home Medications ?Medication ?Instructions ?Recorded ?Confirmed Saccharomyces boulardii 250 mg 250 mg PO BID 04/16/24 05/03/24 capsule (Daily Probiotic (S. boulardii)) cholecalciferol (vitamin D3) 50 50 mcg PO DAILY 04/16/24 05/03/24 mcg (2,000 unit) capsule cyanocobalamin (vitamin B-12) 1,000 mcg sublingual DAILY 04/16/24 05/03/24 1,000 mcg sublingual tablet multivitamin 1 tab PO DAILY 04/16/24 05/03/24 Previous Rx's ?Medication ?Instructions ?Recorded cyclobenzaprine 10 mg tablet 10 mg PO BEDTIME PRN muscle spasm 05/29/24 #7 tabs ibuprofen 600 mg tablet 600 mg PO Q8H PRN fever or pain 05/29/24 #20 tabs Allergies Allergy/AdvReac Type Severity Reaction Status Date / Time No Known Allergies Allergy Unknown NONE Verified 05/29/24 10:13 Review of Systems 2 Review of Systems: Constitutional : No Weight loss, No Fever, No Chills, No Night Sweats, No Fatigue, No Malaise ENT/Mouth : No Hearing loss, No Ear Pain, No Nasal Congestion, No Sinus Pain, No Hoarseness, No sore throat, No Rhinorrhea, No Swallowing Difficulty Eyes: No Eye Pain, No Swelling, No Redness, No Foreign Body, No Discharge, No Vision Changes Cardiovascular : Complaining of chest pain that is worse with certain movements, no radiation, No SOB, No Dyspnea on Exertion, No Orthopnea, No Edema, No Palpitations Respiratory : No Cough, No Sputum, No Wheezing, No Smoke Exposure, No Dyspnea Gastrointestinal : No Nausea, No Vomiting, No Diarrhea, No Constipation, No abdominal Pain, No Hematochezia, No Melena Genitourinary : no irregular bleeding, No Dysuria, No Urinary Frequency, No Hematuria, No Urinary Incontinence, No Urgency, No Flank Pain, No Urinary Flow Changes, No Hesitancy Musculoskeletal : No joint pain, No Myalgias, No Joint Swelling Skin : No Skin Lesions, No rash Neuro : No Weakness, No Numbness, No Paresthesias, No Loss of Consciousness, No Dizziness, No Headache Psych : No Anxiety/Panic, No Depression, No SI/HI/AH/VH, No Social Issues, Heme/Lymph: No Bruising, No Bleeding,No Lymphadenopathy Endocrine : No Polyuria, No Polydipsia, No Temperature Intolerance COUNT INCLUDES THE [facility] Past Medical History Medical History Anxiety Surgical History Right inguinal hernia (11/24/23) History of esophagogastroduodenoscopy (EGD) Social History Social History Are you a primary care connector to a significant other at home: No Do you presently have visiting nurse or other home services: No Alcohol intake: never Patient Tobacco Use Status: Former Tobacco user Tobacco use type: Cigarette Advance Directives: No Advance Directives Information Provided: Yes Do you have a plan to hurt others: No Plan Physical Exam 2 Vital Signs: Vital Signs: Last Vital Signs Temp 97.5 F 05/29/24 10:10 Pulse 55 05/29/24 10:10 Resp 16 05/29/24 10:10 BP 145/70 H 05/29/24 10:10 Pulse Ox 99 05/29/24 10:10 O2 Del Method Room Air 05/29/24 10:10 BMI result Body Mass Index 27.1 Const: Other: Appearance: Alert. Oriented X3. No acute distress. Eyes: Pupils equal, round and reactive to light. ENT: Pharynx normal. Neck: Normal inspection. Neck supple. No lymph nodes noted. No crepitus CVS: Normal heart rate and rhythm. Pulses normal. Normal S1 and S2 Respiratory: No respiratory distress. Breath sounds normal. No Wheezing. No rales Abdomen: Soft and nontender. No rigidity. No distention. Musculoskeletal: Reproducible pain to palpation Skin: Skin warm and dry. Normal skin color. Normal skin turgor. Extremities: No lower extremity edema. No Lacerations. No Rash Neuro: Oriented X 3. No motor deficit. No sensory deficit. Moving all extremities. No slurred speech. CN 2 through 12 grossly intact Psych: calm, cooperative, normal affect Medical Decision Making Medical Decision Making [facility] Narrative: My interpretation of labs: Normal hematology chemistry troponin My interpretation of EKG: Normal sinus rhythm, heart rate 56, no ST segment depression or elevation, no T-wave inversion, QTC 401 My interpretation of chest x-ray: No abnormality Differential Diagnosis Differential Diagnoses: The differential diagnosis associated with the presentation includes (Less likely ACS, musculoskeletal pain, costochondritis) Lab Data [facility] Lab Attestation statement: I reviewed the patient's lab results. 05/29/24 11:03 05/29/24 11:03 Labs: Lab Results 05/29/24 Range/Units 11:03 WBC 10.0 (4.8-10.8) X10*3/uL RBC 4.20 L (4.60-5.80) X10*6/uL Hgb 13.0 L (14.0-18.0) g/dl Hct 38.6 L (42.0-52.0) % MCV 91.9 (80.0-98.0) fL MCH 31.0 (27.0-33.0) pg MCHC 33.7 (31.0-36.0) g/dl RDW 13.6 (11.0-16.0) % Plt Count 238 (160-400) X10*3/uL MPV 10.8 (9.4-12.4) fL Immature Gran % (Auto) 0.4 (0.0-0.4) % Neut % (Auto) 66.8 (45-73) % Lymph % (Auto) 21.4 (20-40) % [place] % (Auto) 8.5 (2-11) % Eos % (Auto) 2.4 (0-4) % Baso % (Auto) 0.5 (0-2) % Lymph # (Auto) 2.1 (1.2-4.9) X10*3/uL [place] # (Auto) 0.9 (0.1-1.2) X10*3/uL Eos # (Auto) 0.2 (0.0-0.4) X10*3/uL Baso # (Auto) 0.1 (0.0-0.2) X10*3/uL Abs Immat Gran (auto) 0.04 H (0.00-0.03) X10*3/uL Absolute Neuts (auto) 6.7 (2.0-8.3) x10*3/uL Absolute Nucleated RBC 0.000 (0.0-0.012) X10*3/uL Nucleated RBC % (auto) 0.0 (0.0-0.2) /100WBC Sodium 140 (135-145) mmol/L Potassium 4.1 (3.3-5.1) mmol/L Chloride 109 H (96-108) mmol/L Carbon Dioxide 25 (22-29) mmol/L Anion Gap 10 L (12-20) BUN 24 H (9-16) mg/dL Creatinine 0.88 (0.5-1.4) mg/dL Estim Creat Clear Calc 101.4 Estimated GFR > 60 Random Glucose 117 H (60-115) mg/dL Calcium 8.7 (8.4-10.2) mg/dL Troponin I High Sens < 2.7 (<3.5-35.0) ng/L Independent Interpretation I performed an independent interpretation of an: EKG and Plain X-Ray Radiology Impression Discussion of test interpretation with radiology: I have reviewed the radiologist's reading. Radiologist Impression: No focal consolidation. This study was presented today to May 29, 2024 for interpretation. Stat results provided at this time as requested by referring provider. Scores Heart Score History: -0- slightly suspicious ECG: -0- normal Age: -1- >45 - <65 Risk factory: -0- no risk factors known Troponin: -0- < or = normal limit Score: 1 Risk: 1.7% Discharge Plan Discharge Clinical Impression: Atypical chest pain Patient Disposition: Home, Self-Care Instructions: Chest Pain (ED), Chest Wall Pain (ED) Additional Instructions: Please follow-up with your primary care physician tomorrow. If you have any worsening or new symptoms, please return to the emergency room or call 911 Prescriptions: New ibuprofen 600 mg tablet 600 mg PO Q8H PRN (Reason: fever or pain) Qty: 20 0RF cyclobenzaprine 10 mg tablet 10 mg PO BEDTIME PRN (Reason: muscle spasm) Qty: 7 0RF No Action multivitamin Tablet 1 tab PO DAILY cholecalciferol (vitamin D3) 50 mcg (2,000 unit) capsule 50 mcg PO DAILY Saccharomyces boulardii [Daily Probiotic (S. boulardii)] 250 mg capsule 250 mg PO BID cyanocobalamin (vitamin B-12) 1,000 mcg tablet, sublingual 1,000 mcg sublingual DAILY Print Language: [place]
[2024-05-29 17:15] VITALS: BP 143/79; PULSE 52; RESP 20; TEMP 36.7; O2SAT 98
== END 2024-05-29 17:21 | disposition home or self-care (01) ==
PROVIDERS: Emergency Provider Emergency Medicine
DX: R07.89 Other chest pain (principal); Z79.899 Other long term (current) drug therapy
CPT/HCPCS: 36415; 71046; 80048; 84484; 85025; 93005; 99283

== ENCOUNTER → 2024-05-29 09:56 | Outpatient (BNV) | payer MEDICAID, SELFPAY | PROVIDERS: Emergency Provider Emergency Medicine; Visit Provider Internal Medicine | DX: R07.9 Chest pain, unspecified (principal); R00.1 Bradycardia, unspecified | CPT/HCPCS: 93010 ==